=== PATIENT | male | born 1980 | race American Indian/Alaskan Native ===

== ENCOUNTER 2017-08-24 13:38 | Emergency (ER) | payer BC, OTHER ==
[2017-08-24 13:39] VITALS: BMI 31.1
[2017-08-24 14:26] VITALS: O2SAT 98
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
--- NOTE | 2017-08-24 15:48 | CT ---
PROCEDURE: CT lumbar spine dated 08/19/2017 HISTORY: Pain. COMPARISON: Comparison made with lumbar spine radiographs 04/05/[address] scan abdomen and pelvis 11/22/2012 which image the lumbar spine in 3 planes. TECHNIQUE: Helical/transaxial computed tomography images were obtained of the lumbar spine without the use of intravenous contrast. Coronal and sagittal reformatted images were created and reviewed. Radiation dose: Total exam DLP = 1857.01 mGy-cm. This CT exam was performed using one or more of the following dose reduction techniques: Automated exposure control, adjustment of the mA and/or kV according to patient size, and/or use of iterative reconstruction technique. . FINDINGS: VERTEBRAE: Current study reveals no acute compression fractures nor retropulsed fragments. The vertebral bodies exhibit normal stature and alignment. Facets normally aligned. DISCS/SPINAL CANAL/NEURAL FORAMINA: L1-2: . Minor posterior disc space narrowing. Small broad-based disc bulge ridge complex flattens the extends into the proximal inferior margins of both exit foramina and the ventral surface of the thecal sac. . The move of the central canal appears adequate despite compressive effects on the thecal sac. Facets are mildly hypertrophic. Exit foramina are adequate. L2-3: Disc space height maintained. Small broad-based bulge of the posterior annulus results in some flattening of the ventral surface of thecal sac more so on the left side. Central canal appears adequate. The exit foramina are also adequate. L3-4: Minimal posterior disc space narrowing. Small broad-based bulge of the posterior annulus also results in some flattening of the ventral surface of thecal sac however the overall central canal appears adequate. Exit foramina are also adequate. L4-5: Small broad-based bulge of the posterior annulus extends into the proximal inferior margins of both exit foramina. Facets are hypertrophic and flavum are buckled. Changes result in bilateral lateral recess and mild moderate canal stenosis. PE exit foramina are mildly narrowed. L5-S1: Minor broad-based bulge of the posterior annulus does not result in any significant canal compromise nor compressive effects on the exiting nerve roots or thecal sac. Central canal appears adequate. Facets are mildly hypertrophic. Exit foramina are adequate. PARASPINAL SOFT TISSUES: Paraspinal soft tissues unremarkable OTHER FINDINGS: Slightly nodular appearance left adrenal gland IMPRESSION: No acute fractures. Mild multilevel disc bulging most notably at the L4 -L5 level and to a lesser degree L1 levels as above.
[2017-08-24 16:24] VITALS: BP 120/81; PULSE 76; RESP 15; TEMP 97.8
== END 2017-08-24 16:23 | disposition home or self-care (01) ==
LOC: C.ER 13:38
DX: M51.86 Other intervertebral disc disorders, lumbar region (principal)

== ENCOUNTER 2018-01-11 16:34 | Emergency (ER) | payer BC, OTHER ==
[2018-01-11 16:35] VITALS: BMI 31.1
[2018-01-11 17:25] VITALS: O2SAT 98
[2018-01-11] MEDS ORDERED: Enoxaparin 120 mg Syringe SC STA (18:26)
[2018-01-11] MEDS: Enoxaparin 40 mg Syringe SC STA ×2 (18:36→18:38)
--- NOTE | 2018-01-11 18:44 | C.PDOC ---
History Of Present Illness 37 y/o male presents to the ER complaining of right calf pain and swelling which has been present for the last 2 days. Patient reports that he had arthroscopic knee surgery 1 week ago. Patient does not have any other complaints. Time Seen by Provider: 01/11/18 18:03 Chief Complaint (Nursing): Lower Extremity Problem/Injury History Per: Patient History/Exam Limitations: no limitations Onset/Duration Of Symptoms: Days Current Symptoms Are (Timing): Still Present Severity: Moderate Past Medical History Reviewed: Historical Data, Nursing Documentation, Vital Signs Vital Signs: Last Vital Signs Temp 98.2 F 01/11/18 18:50 Pulse 92 H 01/11/18 18:50 Resp 18 01/11/18 18:50 BP 145/94 H 01/11/18 18:50 Pulse Ox 98 01/11/18 22:09 - Medical History PMH: No Chronic Diseases Surgical History: Back Surgery - [facility] Procedures EXCISION OF PILONID CYST (03/11/05) LAPAROSCOPIC CHOLECYSTECTOMY (04/28/13) Family History: States: No Known Family Hx - Social History Hx Alcohol Use: Yes Hx Substance Use: No - Immunization History Hx Tetanus Toxoid Vaccination: No Hx Influenza Vaccination: No Hx Pneumococcal Vaccination: No Review Of Systems Musculoskeletal: Positive for: Other (right calf pain) Physical Exam - Physical Exam Appears: Non-toxic, No Acute Distress Skin: Normal Color, Warm Head: Atraumatic, Normacephalic Eye(s): bilateral: Normal Inspection Nose: Normal Oral Mucosa: Moist Neck: Supple Chest: Symmetrical Cardiovascular: Rhythm Regular Respiratory: Normal Breath Sounds, No Accessory Muscle Use, No Rales, No Rhonchi , No Wheezing Extremity: Tenderness (tenderness to right calf), Swelling (mild swelling to right calf), Other (post-op surgical scar on right knee with no signs of infection) Neurological/Psych: Oriented x3, Normal Speech, Normal Motor, Normal Sensation ED Course And Treatment O2 Sat by Pulse Oximetry: 98 (RA) Pulse Ox Interpretation: Normal Progress Note: Patient has been informed that the vascular lab is closed now. Patient has been given an injection of Lovenox. He has been instructed to come back in the morning for a RLE Duplex. Disposition - Disposition Disposition: HOME/ ROUTINE Disposition Time: 18:42 Condition: STABLE Additional Instructions: Return to ED tomorrow morning for right leg duplex to rule out deep vein thrombosis. Return to ED immediately if feel worse. Instructions: Leg Edema (ED) Forms: [employer] (Estonian) - Clinical Impression Clinical Impression: Right leg swelling - PA / SENIOR CLINICAL CONSULTANT / Resident Statement MD/DO has reviewed & agrees with the documentation as recorded. - Scribe Statement The provider has reviewed the documentation as recorded by the Kenjiibe Angle Gilliam Provider Attestation All medical record entries made by the Scribe were at my direction and personally dictated by me. I have reviewed the chart and agree that the record accurately reflects my personal performance of the history, physical exam, medical decision making, and the department course for this patient. I have also personally directed, reviewed, and agree with the discharge instructions and disposition.
[2018-01-11 19:00] VITALS: BP 145/94; PULSE 92; RESP 18; TEMP 98.2
== END 2018-01-11 18:50 | disposition home or self-care (01) ==
LOC: C.ER 16:34
DX: M79.89 Other specified soft tissue disorders (principal)
CPT/HCPCS: 96372; 99284; J1650